=== PATIENT | male | born 2000 | race Caucasian/White ===

== ENCOUNTER 2024-05-01 16:41 | Emergency (ER) | payer SELFPAY ==
[~2024-05-01] VITALS: Ht 182.9 cm; Wt 77.1 kg
[2024-05-01 16:45] VITALS: BP 146/85
== END 2024-05-01 17:29 | disposition home or self-care (01) ==
LOC: ER 16:41
DX: J06.9 Acute upper respiratory infection, unspecified (principal); Z91.030 Bee allergy status
CPT/HCPCS: 87081; 87430; 99283